=== PATIENT | female | born 1975 | race Caucasian/White ===

== ENCOUNTER 2021-10-16 07:17 | Emergency (ER) | payer OTHER ==
[~2021-10-16] VITALS: Ht 160 cm; Wt 54.4 kg
[2021-10-16] MEDS ORDERED: HUMIRA PEN40 MG/0.2 SQ (07:32)
== END 2021-10-16 09:26 | disposition home or self-care (01) ==
LOC: ER 07:17
DX: R21 Rash and other nonspecific skin eruption (principal); T78.49XA Other allergy, initial encounter; W57.XXXA Bitten or stung by nonvenomous insect and other nonvenomous arthropods, initial encounter; Y93.89 Activity, other specified; Y92.832 Beach as the place of occurrence of the external cause; Y99.8 Other external cause status